=== PATIENT | female | born 1995 ===

== ENCOUNTER 2016-07-18 13:54 | Emergency (ER) | payer SELFPAY ==
[2016-07-18 13:55] VITALS: BMI 22.2
[2016-07-18] MEDS ORDERED: Sodium Chloride 0.9% 1,000 ML IV STA (14:22)
[2016-07-18 14:24] VITALS: TEMP 98.3
--- NOTE | 2016-07-18 14:26 | ED PDOC ---
Arrival/HPI - General Chief Complaint: Female Genitourinary Time Seen by Provider: 07/18/16 14:07 Historian: Patient - History of Present Illness Narrative History of Present Illness (Text): 07/18/16 14:23 21yo female present complaining of vaginal spotting since this morning. States her LMP was May 28. [place] [facility] [place]ed [place]ting today. Admits to vomiting, but has been vomiting since she became . Denies abdominal pain, diarrhea, constipation, urinary symptoms , fever, chills, any other complaint. Past Medical History - Provider Review Nursing Documentation Reviewed: Yes - Infectious Disease Hx of Infectious Diseases: None - Neurological Hx Seizures: Yes (childhoo) - Psychiatric Hx Substance Use: No - Surgical History Other/Comment: intussusception, sx at age 3mos and 6 mos. - Anesthesia Hx Anesthesia: Yes Hx Anesthesia Reactions: No Hx Malignant Hyperthermia: No Family/Social History - Physician Review Nursing Documentation Reviewed: Yes Family/Social History: Unknown Family HX Smoking Status: Never Smoked Hx Alcohol Use: No Hx Substance Use: No Allergies/Home Meds Allergies/Adverse Reactions: Allergies No Known Allergies Allergy (Verified 07/18/16 14:10) Review of Systems - Physician Review All systems were reviewed & negative as marked: Yes - Review of Systems Constitutional: Normal Eyes: Normal ENT: Normal Respiratory: Normal Cardiovascular: Normal Gastrointestinal: Normal Genitourinary Female: Vaginal Bleeding. absent: Dysuria, Frequency Musculoskeletal: Normal Skin: Normal Neurological: Normal Endocrine: Normal Hemo/Lymphatic: Normal Psychiatric: Normal Physical Exam Vital Signs Reviewed: Yes Vital Signs Temp Pulse Resp BP Pulse Ox 07/18/16 16:46 66 16 128/61 100 07/18/16 14:02 98.3 F 98 H 20 93/60 L 99 Temperature: Afebrile Blood Pressure: Normal Pulse: Regular Respiratory Rate: Normal Appearance: Positive for: Well-Appearing, Non-Toxic, Comfortable Pain Distress: None Mental Status: Positive for: Alert and Oriented X 3 - Systems Exam Head: Present: Atraumatic, Normocephalic Pupils: Present: PERRL Extroacular Muscles: Present: EOMI Conjunctiva: Present: Normal Mouth: Present: Moist Mucous Membranes Neck: Present: Normal Range of Motion Respiratory/Chest: Present: Clear to Auscultation, Good Air Exchange. No: Respiratory Distress, Accessory Muscle Use Cardiovascular: Present: Regular Rate and Rhythm, Normal S1, S2. No: Murmurs Abdomen: Present: Normal Bowel Sounds. No: Tenderness, Distention, Peritoneal Signs Genitourinary/Pelvic Exam: Present: Cervical os Closed. No: Vaginal Bleeding ( No blood noted in vault) Back: Present: Normal Inspection Upper Extremity: Present: Normal Inspection. No: Cyanosis, Edema Lower Extremity: Present: Normal Inspection. No: Edema Neurological: Present: GCS=15, CN II-XII Intact, Speech Normal Skin: Present: Warm, Dry, Normal Color. No: Rashes Psychiatric: Present: Alert, Oriented x 3, Normal Insight, Normal Concentration Medical Decision Making ED Course and Treatment: 07/18/16 16:14 PT present with complaint of vaginal spotting since this morning. Last LMP was . Denied abdominal pain in ED. No blood noted in vault. Beta 942017.00 Have UTI in her UA. Will tx with Macrobid. Transvaginal US IUP at 7weeks with HR 07/18/16 18:14 Result was DC with patient and mother. she was advised to f/u with her OB. TRT ED for any new or worsening symptoms - Lab Interpretations Lab Results: 07/18/16 14:40 07/18/16 14:40 Lab Results 07/18/16 16:27: Blood Type Confirm O POSITIVE 07/18/16 14:45: Blood Type O POSITIVE, Antibody Screen Negative, BBK History Checked No verified bt 07/18/16 14:40: Beta HCG, Quant [id number] H 07/18/16 14:40: Sodium 135, Potassium 4.8, Chloride 102, Carbon Dioxide 24, Anion Gap 14, BUN 10, Creatinine 0.7, Est GFR ( Amer) > 60, Est GFR (Non- Af Amer) > 60, Random Glucose 76, Calcium 10.1, Total Bilirubin 0.6, AST 25, ALT 30, Alkaline Phosphatase 54, Total Protein 8.2, Albumin 4.3, Globulin 3.9, Albumin/Globulin Ratio 1.1 07/18/16 14:40: Urine Color Yellow, Urine Appearance Clear, Urine pH 6.0, Ur Specific [place] 1.025, Urine Protein Negative, Urine Glucose (UA) Negative, Urine Ketones Negative, Urine Blood Small H, Urine Nitrate Positive H, Urine Bilirubin Negative, Urine Urobilinogen 0.2, Ur Leukocyte Esterase Small H, Urine RBC 0 - 2, Urine WBC 10 - 15, Ur Epithelial Cells 3 - 4, Urine Bacteria Mod, Urine HCG, Qual Positive 07/18/16 14:40: PT 12.1 H, INR 1.12 H, APTT 26.1 07/18/16 14:40: WBC 12.5 H, RBC 4.08, Hgb 12.7, Hct 35.4 L, MCV 86.8, MCH 31.1, MCHC 35.9, RDW 12.4, Plt Count 268, MPV 10.5, Gran % 80.3 H, Lymph % (Auto) 13.2 L, [place] % (Auto) 5.7, Eos % (Auto) 0.6 L, Baso % (Auto) 0.2, Gran # 10.08 H , Lymph # 1.7, [place] # 0.7 H, Eos # 0.1, Baso # 0.02 - RAD Interpretation Radiology Orders: 07/18/16 14:20 OB TRANSVAGINAL [US] Stat - Medication Orders Current Medication Orders: Discontinued Medications Sodium Chloride (Sodium Chloride 0.9%) 1,000 mls @ 999 mls/hr IV .Q1H1M STA Stop: 07/18/16 15:22 Last Admin: 07/18/16 14:50 Dose: 999 mls/hr Nitrofurantoin Macrocrystals (Macrobid) 100 mg PO ONCE STA Stop: 07/18/16 16:18 Last Admin: 07/18/16 16:39 Dose: 100 mg Disposition/Present on Arrival - Present on Arrival Any Indicators Present on Arrival: No History of DVT/PE: No History of Uncontrolled Diabetes: No Urinary Catheter: No History of Decub. Ulcer: No History Surgical Site Infection Following: None - Disposition Have Diagnosis and Disposition been Completed?: Yes Diagnosis: UTI (urinary tract infection), Disposition: HOME/ ROUTINE Disposition Time: 16:20 Patient Plan: Discharge Condition: STABLE Discharge Instructions (ExitCare): Urinary Tract Infection in Women (ED) Additional Instructions: Follow up with your OB Return to ED for any new or worsening symptoms Prescriptions: Nitrofurantoin Macrocrystals [Macrobid] 100 mg PO BID #14 cap Referrals: PCP,NO [Primary Care Provider] - Follow up with primary
[2016-07-18 15:03] LABS: ADD MANUAL DIFF? NO
[2016-07-18 15:05] LABS: URINE BILIRUBIN NEGATIVE (NEGATIVE); URINE BLOOD SMALL (NEGATIVE); URINE GLUCOSE (UA) NEGATIVE (NEGATIVE); URINE KETONE NEGATIVE (NEGATIVE); URINE LEUKOCYTE ESTERASE SMALL Leu/uL (NEGATIVE); URINE PROTEIN NEGATIVE mg/dL (<30 mg/dL); URINE UROBILINOGEN 0.2 E.U./dL (<1 E.U./dL)
[2016-07-18 15:06] LABS: URINE APPEARANCE CLEAR (CLEAR); URINE COLOR YELLOW (YELLOW)
[2016-07-18 15:08] LABS: BASO # 0.02 K/mm3 (0.0-2.0); BASO % 0.2 % (0.0-3.0); EOS # 0.1 (0.0-0.7); EOS % 0.6 % (1.5-5.0); GRAN # 10.08 (1.4-6.5); GRAN % 80.3 % (50.0-68.0); HEMATOCRIT 35.4 % (36.0-48.0); LYMPH # 1.7 (1.2-3.4); LYMPH % 13.2 % (22.0-35.0); MEAN CELL VOLUME 86.8 fL (80.0-105.0); MEAN CORPUSCULAR HEMOGLOBIN 31.1 pg (25.0-35.0); MEAN CORPUSCULAR HGB CONC 35.9 g/dl (31.0-37.0); MEAN PLATELET VOLUME 10.5 fl (7.0-11.0); MONO # 0.7 (0.1-0.6); MONO % 5.7 % (1.0-6.0); PLATELET COUNT 268 10^3/uL (120.0-450.0); RED CELL DISTRIBUTION WIDTH 12.4 % (11.5-14.5); WHITE BLOOD COUNT 12.5 10^3/ul (4.5-11.0)
[2016-07-18 15:15] LABS: INR 1.12 (0.93-1.08); PARTIAL THROMBOPLASTIN TIME 26.1 Seconds (23.7-30.8)
[2016-07-18 15:19] LABS: URINE BACTERIA MOD (NEG); URINE RBC 0 - 2 /hpf (0-2)
[2016-07-18 15:21] LABS: ALB/GLOB RATIO 1.1 (1.1-1.8); ALKALINE PHOSPHATASE 54 U/L (38-133); ALT/SGPT 30 U/L (7-56); AST/SGOT 25 U/L (15-39); BILIRUBIN,TOTAL 0.6 mg/dL (0.2-1.3); BLOOD UREA NITROGEN 10 mg/dL (7-21); CALCIUM 10.1 mg/dL (8.4-10.5); CARBON DIOXIDE 24 mmol/L (21-33); CHLORIDE 102 mmol/L (98-107); GFR AFRICAN-AMERICAN > 60; GLUCOSE,RANDOM 76 mg/dL (70-110); POTASSIUM 4.8 mmol/L (3.6-5.0); SODIUM 135 mmol/L (132-148); TOTAL PROTEIN 8.2 g/dL (5.8-8.3)
--- NOTE | 2016-07-18 16:09 | US ---
PROCEDURE: HISTORY: vaginal bleeding COMPARISON: None TECHNIQUE: Transvaginal FINDINGS: The uterus measures 8.8 x 7.2 x 7.0 centimeters. There is intrauterine gestational sac correspond to 7 weeks gestational age as well as the pole corresponds to 7 weeks gestational age. . heart motion is observed. The ovaries have a normal sonographic appearance with a 1 centimeter left ovarian follicle. IMPRESSION: Intrauterine gestation as discussed above.
[2016-07-18 16:48] VITALS: BP 128/61; PULSE 66; RESP 16; O2SAT 100
== END 2016-07-18 16:48 | disposition home or self-care (01) ==
LOC: ED 13:54
DX: O23.41 Unspecified infection of urinary tract in pregnancy, first trimester (principal); Z3A.01 Less than 8 weeks gestation of pregnancy
CPT/HCPCS: 76817; 80053; 81001; 84702; 84703; 85025; 85610; 85730; 86850; 86900; 87086; 87181; 99283; J7040

== ENCOUNTER 2016-07-27 13:28 | Emergency (ER) | payer MEDICAID, OTHER ==
[2016-07-27 13:43] VITALS: BP 100/65; PULSE 90; RESP 19; TEMP 98.1; O2SAT 99; BMI 20.9
--- NOTE | 2016-07-27 15:19 | ED PDOC ---
Arrival/HPI - General Chief Complaint: Female Genitourinary Time Seen by Provider: 07/27/16 13:57 Historian: Patient - History of Present Illness Narrative History of Present Illness (Text): 07/27/16 15:12 21yo female present with complaint of vaginal bleeding. She was seen here on July 18 for same complaint and transvaginal US showed IUP with FHR. States she noticed a little more bleeding minutes [employer]. She denies abdominal pain and any other complaint. states she have appointment with OB tomorrow. Past Medical History - Provider Review Nursing Documentation Reviewed: Yes - Infectious Disease Hx of Infectious Diseases: None - Neurological Hx Seizures: Yes (childhoo) - Psychiatric Hx Substance Use: No - Surgical History Other/Comment: intussusception, sx at age 3mos and 6 mos. - Anesthesia Hx Anesthesia: Yes Hx Anesthesia Reactions: No Family/Social History - Physician Review Nursing Documentation Reviewed: Yes Family/Social History: Unknown Family HX Smoking Status: Heavy Smoker > 10 Cigarettes Daily Hx Alcohol Use: No Hx Substance Use: No Allergies/Home Meds Allergies/Adverse Reactions: Allergies No Known Allergies Allergy (Verified 07/27/16 13:44) Review of Systems - Physician Review All systems were reviewed & negative as marked: Yes - Review of Systems Constitutional: Normal Eyes: Normal ENT: Normal Respiratory: Normal Cardiovascular: Normal Gastrointestinal: Normal Genitourinary Female: Vaginal Bleeding Musculoskeletal: Normal Skin: Normal Neurological: Normal Endocrine: Normal Hemo/Lymphatic: Normal Psychiatric: Normal Physical Exam Vital Signs Reviewed: Yes Vital Signs Temp Pulse Resp BP Pulse Ox 07/27/16 13:42 98.1 F 90 19 100/65 99 Temperature: Afebrile Blood Pressure: Normal Pulse: Regular Respiratory Rate: Normal Appearance: Positive for: Well-Appearing, Non-Toxic, Comfortable Pain Distress: None Mental Status: Positive for: Alert and Oriented X 3 - Systems Exam Head: Present: Atraumatic, Normocephalic Pupils: Present: PERRL Extroacular Muscles: Present: EOMI Conjunctiva: Present: Normal Mouth: Present: Moist Mucous Membranes Neck: Present: Normal Range of Motion Respiratory/Chest: Present: Clear to Auscultation, Good Air Exchange. No: Respiratory Distress, Accessory Muscle Use Cardiovascular: Present: Regular Rate and Rhythm, Normal S1, S2. No: Murmurs Abdomen: Present: Normal Bowel Sounds. No: Tenderness, Distention, Peritoneal Signs Back: Present: Normal Inspection Upper Extremity: Present: Normal Inspection. No: Cyanosis, Edema Lower Extremity: Present: Normal Inspection. No: Edema Neurological: Present: GCS=15, CN II-XII Intact, Speech Normal Skin: Present: Warm, Dry, Normal Color. No: Rashes Psychiatric: Present: Alert, Oriented x 3, Normal Insight, Normal Concentration Medical Decision Making ED Course and Treatment: 07/27/16 20:21 PT was comfortable and hemodnamically stable in ED. Repeat transvaginal US and beta quant was ordered. While waiting for these test, pt demanded to sign out AMA. States she is tired of waiting and will rather f/u with her OB tomorrow. She was advised to the risk of ectopic , demise, spontaneous ab. she stated that she understand all these risk, but still insist on signing out AMA. she signed out AMA. shew as strongly advised to f/u with her OB tomorrow. Advised to return to ED at anytime she changes her mind. Disposition/Present on Arrival - Present on Arrival Any Indicators Present on Arrival: No History of DVT/PE: No History of Uncontrolled Diabetes: No Urinary Catheter: No History of Decub. Ulcer: No History Surgical Site Infection Following: None - Disposition Have Diagnosis and Disposition been Completed?: Yes Diagnosis: Vagina bleeding, Disposition: AGAINST MEDICAL ADVICE Disposition Time: 15:05 Condition: GOOD Referrals: PCP,NO [Primary Care Provider] - Follow up with primary
== END 2016-07-27 15:11 | disposition left against medical advice (07) ==
LOC: ED 13:28
DX: O46.90 Antepartum hemorrhage, unspecified, unspecified trimester (principal)